=== PATIENT | female | born 1960 | race Caucasian/White ===

== ENCOUNTER 2019-11-08 09:35 | Outpatient (CLI) | payer OTHER, SELFPAY ==
--- NOTE | 2019-11-08 09:43 | MM_ITS ---
WS: [id number] BILATERAL DIGITAL SCREENING MAMMOGRAPHY WITH CAD CLINICAL INFORMATION: SCREENING HISTORY: Screening mammogram. No current complaints. COMPARISON: TECHNIQUE: Bilateral CC and MLO views. FINDINGS: Bilateral breast implants The breasts are composed of heterogeneous fibroglandular density tissue, which can limit the detectio n of small underlying mass lesions. No suspicious mass, asymmetry, calcifications, or architectural d istortion. No evidence of malignancy. MM/[place] [id number] IMPRESSION: BI-RADS: 2-Benign FOLLOW UP: 1 Year Follow-up Recommend return to annual screening mammography.
== END 2019-11-08 09:36 | disposition home or self-care (01) ==
LOC: RADSHAW 09:42
PROVIDERS: PCP Nurse Practitioner Family; Visit Provider Nurse Practitioner Women's Health
DX: Z12.31 Encounter for screening mammogram for malignant neoplasm of breast (principal)
CPT/HCPCS: 77067

== ENCOUNTER → 2020-02-11 13:49 | Outpatient (BNVA) | payer OTHER, SELFPAY | PROVIDERS: PCP Nurse Practitioner Family; Visit Provider Nurse Practitioner Family | DX: Z20.828 Contact with and (suspected) exposure to other viral communicable diseases (principal) | CPT/HCPCS: 87635 ==

== ENCOUNTER → 2020-02-25 09:11 | Outpatient (BNVA) | payer OTHER, SELFPAY | PROVIDERS: PCP Nurse Practitioner Family; Visit Provider Emergency Medicine | DX: Z20.828 Contact with and (suspected) exposure to other viral communicable diseases (principal) | CPT/HCPCS: 87400; 87635 ==

== ENCOUNTER → 2020-04-24 11:09 | Outpatient (BNVA) | payer OTHER, SELFPAY | PROVIDERS: PCP Nurse Practitioner Family; Visit Provider Nurse Practitioner Women's Health | DX: R35.0 Frequency of micturition (principal); R31.9 Hematuria, unspecified; B37.9 Candidiasis, unspecified | CPT/HCPCS: 81000; 87086 ==

== ENCOUNTER 2020-07-31 14:20 | Outpatient (CLI) | payer OTHER, SELFPAY ==
--- NOTE | 2020-07-31 14:40 | XR_ITS ---
WS: [id number] Exam: XR hip RT 2-3V wo/w pel* [id number] Date/Time of Exam: 07/31/2020 2:41 PM Reason For Exam: M25.551 - Pain in right hip No fracture or dislocation. Moderate degenerative change of the joint compartment. Normal soft tissue s. XR/XR hip RT 2-3V wo/w pel* [id number] IMPRESSION: 1. Moderate degenerative change. No fracture.
--- NOTE | 2020-07-31 14:40 | XR_ITS ---
WS: [id number] Exam: XR lumbar spine 2-3V* [id number] Date/Time of Exam: 07/31/2020 2:41 PM Reason For Exam: M54.5 - Low back pain No acute fracture or dislocation. Mild degenerative narrowing of the L4-5 disc. Posterior elements ar e intact. DJD of the SI joints. XR/XR lumbar spine 2-3V* [id number] IMPRESSION: 1. Minimal degenerative changes. No fracture or malalignment.
== END 2020-07-31 14:21 | disposition home or self-care (01) ==
LOC: RAD 14:25
PROVIDERS: PCP Nurse Practitioner Family; Visit Provider Nurse Practitioner Family
DX: M54.5 Low back pain (principal); M25.551 Pain in right hip; G89.29 Other chronic pain
CPT/HCPCS: 72100; 73502

== ENCOUNTER 2020-08-25 06:46 | Outpatient (CLI) | payer OTHER, SELFPAY ==
--- NOTE | 2020-08-25 07:17 | MR_ITS ---
WS: [id number] MRI RIGHT HIP without CONTRAST. COMPARISON: Radiograph 07/31/2020. Multiplanar, multisequence imaging is performed without contrast. No acute marrow edema or fracture. No replacement of the marrow or marrow lesions identified. Mild na rrowing of the hip joints bilaterally. There is increased T2 signal in the RIGHT labrum. There is a l arge acetabular labral tear on the RIGHT. Otherwise very mild narrowing of the joint spaces bilateral ly. No marrow edema. No soft tissue abnormality. SI joints are normal. No erosions or edema. MR/MR hip RT wo con* [id number] IMPRESSION: 1. Large RIGHT acetabular labral tear. 2. No fractures or marrow edema.
--- NOTE | 2020-08-25 08:00 | MR_ITS ---
WS: [id number] MRI LUMBAR SPINE NONCONTRAST HISTORY: M54.5 - Low back pain COMPARISON: None available. TECHNIQUE: Sagittal and axial multisequence imaging is submitted. Mild cervical stenosis due to disc disease at C6-7. Posterior alignment is normal. Mild disc desiccation from L3-4 to L5-S1. No acute fracture or marrow edema. Disc spaces and vertebral body heights are well-preserved. Conus terminates normally at L1. L1-L2: Normal. L2-L3: Mild ligamentum flavum hypertrophy. No stenosis. L3-L4: Mild annular disc bulge with a small central disc protrusion and annular fissure. There is mil d disc encroachment into the lateral recesses with only mild stenosis. L4-L5: Mild annular disc bulge. Annular bulge extends into the foramen but there is no nerve root dis placement secondary to the disc bulging. Very slight contact on the RIGHT L4 nerve root. There is a s mall central and LEFT paracentral disc protrusion and osteophytes. The LEFT protrusion is slightly co ntacting but not displacing the L5 nerve root. No os significant stenosis. L5-S1: Normal. Tarlov cyst posterior to S2 is 14 mm. MR/MR lumbar spine wo con* [id number] IMPRESSION: 1. No high-grade central stenosis. 2. Small central and LEFT paracentral disc protrusions at L4-5 with a LEFT par acentral disc protrusion contacting the L5 nerve root. No significant displacem ent. 3. Small central disc protrusion with annular fissure at L3-4.
== END 2020-08-25 06:47 | disposition home or self-care (01) ==
LOC: RADSHAW 06:54
PROVIDERS: PCP Nurse Practitioner Family; Visit Provider Nurse Practitioner Family
DX: M47.816 Spondylosis without myelopathy or radiculopathy, lumbar region (principal); M54.5 Low back pain; G89.29 Other chronic pain; M25.551 Pain in right hip; M51.26 Other intervertebral disc displacement, lumbar region; S73.191A Other sprain of right hip, initial encounter; X58.XXXA Exposure to other specified factors, initial encounter
CPT/HCPCS: 72148; 73721

== ENCOUNTER → 2020-08-28 08:12 | Outpatient (BNVA) | payer OTHER, SELFPAY | PROVIDERS: PCP Nurse Practitioner Family; Referring Provider Nurse Practitioner Family; Visit Provider Specialist | DX: M16.11 Unilateral primary osteoarthritis, right hip (principal); M54.5 Low back pain; M70.61 Trochanteric bursitis, right hip; S73.199A Other sprain of unspecified hip, initial encounter; X58.XXXA Exposure to other specified factors, initial encounter | CPT/HCPCS: 73502 ==

== ENCOUNTER 2020-09-10 06:00 | Outpatient (RCR) | payer OTHER, SELFPAY | END 2020-10-01 23:59 | disposition home or self-care (01) | LOC: APT 06:00 | PROVIDERS: PCP Nurse Practitioner Family; Referring Provider Specialist; Visit Provider Specialist | DX: M54.5 Low back pain (principal); M25.559 Pain in unspecified hip | CPT/HCPCS: 97110; 97161 ==

== ENCOUNTER → 2020-09-23 10:14 | Outpatient (BNVA) | payer SELFPAY | PROVIDERS: PCP Nurse Practitioner Family; Visit Provider Dermatology | DX: Z01.89 Encounter for other specified special examinations (principal) ==

== ENCOUNTER 2020-10-02 06:00 | Outpatient (RCR) | payer OTHER, SELFPAY | END 2020-11-01 23:59 | disposition home or self-care (01) | LOC: APT 06:00 | PROVIDERS: PCP Nurse Practitioner Family; Referring Provider Specialist; Visit Provider Specialist | DX: M54.5 Low back pain (principal); M25.559 Pain in unspecified hip | CPT/HCPCS: 97110 ==

== ENCOUNTER 2020-11-13 09:04 | Outpatient (CLI) | payer OTHER, SELFPAY ==
--- NOTE | 2020-11-13 09:17 | MM_ITS ---
WS: [id number] BILATERAL SCREENING MAMMOGRAM WITH RAIMUNDO DISPLACEMENT VIEWS. CAD PERFORMED. HISTORY: SCREENING COMPARISON: 11/08/2019, 10/31/2018 Bilateral craniocaudal and mediolateral like views are performed. Raimundo displacement views in CC and MLO projection also performed. Breasts composition: The breasts are heterogeneously dense, which may obscure small masses. Long-ter m stability 5 mm nodule in the upper outer quadrant of the RIGHT breast. This is probably a lymph nod e. No increase in size over several years. Retropectoral implants are intact. No suspicious calcifica tions. MM/[place] [id number] IMPRESSION: BI-RADS: 2-Benign FOLLOW-UP: 1 Year Follow-up
== END 2020-11-13 09:05 | disposition home or self-care (01) ==
LOC: RADSHAW 09:11
PROVIDERS: PCP Nurse Practitioner Family; Visit Provider Nurse Practitioner Women's Health
DX: Z12.31 Encounter for screening mammogram for malignant neoplasm of breast (principal); Z01.419 Encounter for gynecological examination (general) (routine) without abnormal findings
CPT/HCPCS: 77067; 88175

== ENCOUNTER 2021-11-19 10:06 | Outpatient (CLI) | payer BC, OTHER, SELFPAY ==
--- NOTE | 2021-11-19 10:15 | MM_ITS ---
WS: [id number] Bilateral screening 3D tomosynthesis digital mammogram, 11/19/2021 Clinical Data: Z12.39 - Encounter for other screening for malignant neop... Comparison: 11/13/2020, 11/08/2019, 10/31/2018, 10/25/2017, 09/23/2016, 09/18/2015, 08/07/2013, 08/02/2012. Findings: The breast parenchymal pattern shows heterogeneous density No spiculated masses or clustered calcific ations are seen. There are no secondary signs of carcinoma. Bilateral augmentation patient mammoplast ies have been performed. The mammaplasty implants are intact. MM/[place] [id number] Impression: 1. Negative bilateral mammogram unchanged. 2. Recommend annual screening mammograms. BIRADS: 2-Benign FOLLOW UP: 1 Year Follow-up The CAD hot box checker was used.
== END 2021-11-19 10:07 | disposition home or self-care (01) ==
LOC: RADSHAW 10:07
PROVIDERS: PCP Nurse Practitioner Family; Visit Provider Nurse Practitioner Family
DX: Z12.31 Encounter for screening mammogram for malignant neoplasm of breast (principal)
CPT/HCPCS: 77063; 77067; 87624

== ENCOUNTER → 2022-05-31 08:57 | Outpatient (BNVA) | payer BC, OTHER, SELFPAY | PROVIDERS: PCP Nurse Practitioner Family; Visit Provider Nurse Practitioner Family | DX: L98.9 Disorder of the skin and subcutaneous tissue, unspecified (principal); M25.50 Pain in unspecified joint | CPT/HCPCS: 80053; 85025; 85651; 86140; 86160; 86162; 86235; 86255; 86376 ==

== ENCOUNTER → 2022-06-15 08:20 | Outpatient (BNVA) | payer BC, OTHER, SELFPAY | PROVIDERS: PCP Nurse Practitioner Family; Visit Provider Dermatology | DX: Z01.89 Encounter for other specified special examinations (principal) ==

== ENCOUNTER → 2022-09-09 12:19 | Outpatient (BNVA) | payer BC, OTHER, SELFPAY | PROVIDERS: PCP Nurse Practitioner Family; Visit Provider Internal Medicine | DX: M25.559 Pain in unspecified hip (principal); M70.61 Trochanteric bursitis, right hip; E88.81 Metabolic syndrome and other insulin resistance; M45.0 Ankylosing spondylitis of multiple sites in spine; L40.9 Psoriasis, unspecified; M25.50 Pain in unspecified joint; Z79.899 Other long term (current) drug therapy | CPT/HCPCS: 36415; 72202; 73120; 80053; 81003; 82550; 82607; 82784; 83516; 83735; 84443; 85025; 85651; 86140; 86200; 86704; 86803; 86812; 87340 ==

== ENCOUNTER 2022-12-23 10:03 | Outpatient (CLI) | payer OTHER, SELFPAY ==
--- NOTE | 2022-12-23 10:14 | MM_ITS ---
WS: [id number] BILATERAL SCREENING DIGITAL BREAST MAMMOGRAPHY WITH RAIMUNDO DISPLACEMENT VIEWS. CAD PERFORMED. HISTORY: SCREENING COMPARISON: 11/19/2021, 11/13/2020 Bilateral craniocaudal and mediolateral oblique views are performed with tomosynthesis and SM. Raimundo displacement views in CC and MLO projection also performed. Breasts composition: There are scattered areas of fibroglandular density. Retropectoral implants are intact. No suspicious masses or calcifications. IMPRESSION: MM/[place] [id number] BI-RADS: 2-Benign FOLLOW-UP: 1 Year Follow-up
== END 2022-12-23 10:04 | disposition home or self-care (01) ==
PROVIDERS: PCP Nurse Practitioner Family; Visit Provider Nurse Practitioner Family
DX: Z12.31 Encounter for screening mammogram for malignant neoplasm of breast (principal); Z01.419 Encounter for gynecological examination (general) (routine) without abnormal findings
CPT/HCPCS: 77063; 77067; 88175

== ENCOUNTER 2023-12-27 11:54 | Outpatient (CLI) | payer OTHER, SELFPAY ==
--- NOTE | 2023-12-27 11:56 | MM_ITS ---
WS: [id number] BILATERAL 3D TOMOSYNTHESIS DIGITAL SCREENING MAMMOGRAPHY WITH CAD CLINICAL INFORMATION: Z12.31 - Encounter for screening mammogram for malignant ... HISTORY: Screening mammogram. Bilateral breast soreness COMPARISON: 2022 TECHNIQUE: Bilateral CC and MLO views. FINDINGS: Bilateral retropectoral implants are stable in appearance and intact. The breasts are composed of heterogeneous fibroglandular density tissue, which can limit the detectio n of small underlying mass lesions. No suspicious mass, asymmetry, calcifications, or architectural d istortion. No evidence of malignancy. Small ovoid nodule upper outer RIGHT breast with long-term stab ility. MM/MM [facility] tomosynthesis [id number] IMPRESSION: DENSITY: The breasts are heterogeneously dense, which may obscure small masses. BI-RADS: 2 - Benign FOLLOW UP: 1 Year Follow-up Recommend return to annual screening mammography.
== END 2023-12-27 11:55 | disposition home or self-care (01) ==
LOC: RAD 11:54
PROVIDERS: PCP Nurse Practitioner Family; Visit Provider Nurse Practitioner Family
DX: Z12.31 Encounter for screening mammogram for malignant neoplasm of breast (principal); R92.333 Mammographic heterogeneous density, bilateral breasts; N63.11 Unspecified lump in the right breast, upper outer quadrant
CPT/HCPCS: 77063; 77067

== ENCOUNTER 2024-01-02 14:39 | Outpatient (CLI) | payer OTHER, SELFPAY ==
--- NOTE | 2024-01-02 15:00 | XR_ITS ---
WS: [id number] SCREENING DEXA SCAN eigital CLINICAL INFORMATION: Z78.0 - Asymptomatic menopausal state COMPARISON: None. FINDINGS: The L1-L4 bone mineral density measures 1.214 g/cm2. This corresponds to a T score score of 0.3 and Z score of 1.5. Left femoral neck bone mineral density measures 0.874 g/cm2. This corresponds to a T score of -1.1 an d Z score of -0.1. Right femoral neck bone mineral density measures 0.885 g/cm2. This corresponds to a T score -1.0of an d Z score of 0.0. Mean femoral neck bone mineral density measures 0.880 g/cm2. This corresponds to a T score of -1.0 an d Z score of -0.1. XR/XR DEXA axial skeleton* [id number] IMPRESSION: Normal bone mineralization lumbar spine. Osteopenia femoral necks Patient's FRAX calculated 10 year probability for major osteoporotic fracture i s 15.0% and osteoporotic hip fracture is 0.6%.
== END 2024-01-02 14:40 | disposition home or self-care (01) ==
PROVIDERS: PCP Nurse Practitioner Family; Visit Provider Nurse Practitioner Women's Health
DX: Z13.820 Encounter for screening for osteoporosis (principal); Z78.0 Asymptomatic menopausal state; M85.859 Other specified disorders of bone density and structure, unspecified thigh
CPT/HCPCS: 77080

== ENCOUNTER → 2024-03-21 14:26 | Outpatient (BNVA) | payer OTHER, SELFPAY | PROVIDERS: PCP Nurse Practitioner Family; Visit Provider Clinical Nurse Specialist Adult Health | DX: R05.9 Cough, unspecified (principal) | CPT/HCPCS: 87426 ==

== ENCOUNTER → 2024-04-18 11:54 | Outpatient (BNVA) | payer OTHER, SELFPAY | PROVIDERS: PCP Nurse Practitioner Family; Visit Provider Nurse Practitioner Family | DX: E88.810 Metabolic syndrome | CPT/HCPCS: 80053; 80061; 82607; 84443; 85025 ==

== ENCOUNTER → 2024-05-11 08:29 | Outpatient (BNVA) | payer OTHER, SELFPAY | PROVIDERS: PCP Nurse Practitioner Family; Visit Provider Nurse Practitioner Family | DX: R05.9 Cough, unspecified (principal) | CPT/HCPCS: 87400; 87426 ==

== ENCOUNTER → 2024-10-02 09:49 | Outpatient (BNVA) | payer OTHER, SELFPAY | PROVIDERS: PCP Nurse Practitioner Family; Visit Provider Nurse Practitioner Family | DX: E66.3 Overweight (principal); E88.810 Metabolic syndrome | CPT/HCPCS: 80053; 80061; 82306; 83036; 85025 ==

== ENCOUNTER 2025-01-14 12:36 | Outpatient (CLI) | payer OTHER, SELFPAY ==
--- NOTE | 2025-01-14 | MM_ITS ---
WS: [id number] BILATERAL 3D TOMOSYNTHESIS DIGITAL SCREENING MAMMOGRAPHY WITH CAD CLINICAL INFORMATION: ANNUAL SCREENING HISTORY: Screening mammogram. No current complaints. COMPARISON: 2023 TECHNIQUE: Bilateral CC and MLO views. FINDINGS: Bilateral implants are stable. The breasts are composed of heterogeneous fibroglandular density tissue, which can limit the detection of small underlying mass lesions. No suspicious mass, asymmetry, calcifications, or architectural distortion. No evidence of malignancy. Long-term stability small ovoid nodule upper outer RIGHT breast MM/MM scr tomosynthesis [id number] IMPRESSION: DENSITY: The breasts are heterogeneously dense, which may obscure small masses. BI-RADS: 2 - Benign FOLLOW UP: 1 Year Follow-up Recommend return to annual screening mammography.
== END 2025-01-14 12:37 | disposition home or self-care (01) ==
PROVIDERS: PCP Nurse Practitioner Family; Visit Provider Nurse Practitioner Women's Health
DX: Z12.31 Encounter for screening mammogram for malignant neoplasm of breast (principal); R92.323 Mammographic fibroglandular density, bilateral breasts; R92.333 Mammographic heterogeneous density, bilateral breasts; N63.10 Unspecified lump in the right breast, unspecified quadrant
CPT/HCPCS: 77063; 77067